=== PATIENT | female | born 1945 | race Caucasian/White ===

== ENCOUNTER 2023-10-05 21:43 | Emergency (ER) | payer OTHER, SELFPAY ==
[2023-10-05] MEDS ORDERED: KETOROLAC 30 MG/ML INJ ONE (22:15)
[2023-10-05] MEDS ORDERED: ONDANSETRON 4 MG/2 ML VIAL ONE (22:15)
[2023-10-05] MEDS ORDERED: NA CHLORIDE 0.9% 1,000 ML ONE (22:15)
[2023-10-05] MEDS ORDERED: MORPHINE 4 MG/ML SYR ONE (22:15)
[2023-10-05 22:16] LABS: Absolute Eosinophils 0.1 K/uL (0-0.5); Absolute Lymphocytes (CBC) 1.6 K/uL (0.7-4.9); Absolute Monocytes 0.5 K/uL (0.1-1.3); Absolute Neutrophil 5.8 K/uL (1.8-8.0); Basophils % 0.5 % (0-1.3); Eosinophils % 1.2 % (0-4.4); Hematocrit 35.9 % (36.0-45.0); Hemoglobin 11.9 g/dL (12.0-15.0); Lymphocytes % 20.2 % (15.3-44.8); MCH 28.8 pg (27.0-35.0); MCHC 33.3 g/dL (32.0-36.0); MCV 86.6 fL (80-100); MPV 8.8 fL (7.6-11.3); Monocytes % 5.8 % (3.3-12.3); Neutrophils % 72.3 % (41.7-73.7); Nucleated Red Blood Cells % 0.2 % (0-0); Platelets 129 thou/uL (152-406); RBC Red Blood Cell Count 4.14 M/uL (3.86-4.86); Red Cell Distribution Width 15.2 % (12.1-15.2)
[2023-10-05 22:30] LABS: Anion Gap 8.5 mEq/L (5.0-15.0); Potassium 3.5 mEq/L (3.5-5.1)
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
--- NOTE | 2023-10-06 00:17 | EDPHYS ---
Physician Documentation [facility] Name: Esme Jean Baptiste Age: 78 yrs Sex: Female : 1945 Arrival Date: 10/05/2023 Time: 21:43 Bed 20 Private MD: ED Physician Tera Rios HPI: 10/04 23:57 This 78 yrs old Female presents to ER via EMS with complaints of fall and sp4 left shoulder pain . 10/05 05:12 78-year-old female presents with acute fall at home with complaint of the left shoulder sp4 pain, left neck pain, possible head injury, left hip and thigh pain. Historical: - Allergies: 10/04 22:04 Codeine; pf1 - PMHx: 22:04 Hypertensive disorder; palpitations; Hypercholesterolemia; Diabetes mellitus; Asthma; pf1 Congestive heart failure; - PSHx: 22:04 pacemaker; gastric sleeve; bilateral knee replacement; right shoulder replacement; left pf1 shoulder; - Immunization history:: Adult Immunizations up to date, 3 doses of Moderna Last tetanus immunization: < 5 years ago Flu vaccine is up to date. - Infectious Disease History:: Denies. - Social history:: Smoking status: Patient denies any tobacco usage or history of. Patient/guardian denies using alcohol, street drugs. - Family history:: not pertinent. ROS: 10/05 05:12 Constitutional: Negative for fever, chills, and weight loss, positive for left sp4 shoulder pain, left neck pain, fall at home, left hip and thigh pain. All other systems are negative, Exam: 05:12 Constitutional: This is a well developed, well nourished patient who is awake, alert, sp4 and in no acute distress. Head/Face: Normocephalic, atraumatic. Eyes: Pupils equal round and reactive to light, extra-ocular motions intact. Lids and lashes normal. Conjunctiva and sclera are not injected. Cornea within normal limits. Periorbital areas with no swelling, redness, or edema. ENT: Nares patent. No nasal discharge, no septal abnormalities noted. Tympanic membranes are normal and external auditory canals are clear. Oropharynx with no redness, swelling, or masses, exudates, or evidence of obstruction, uvula midline. Mucous membranes moist. Neck: Trachea midline, no thyromegaly or masses palpated, and no cervical lymphadenopathy. Supple, full range of motion without nuchal rigidity, or vertebral point tenderness. Chest/axilla: Normal chest wall appearance and motion. Nontender with no deformity. No lesions are appreciated. Cardiovascular: Regular rate and rhythm with a normal S1 and S2. No gallops, murmurs, or rubs. Normal PMI, no JVD. No pulse deficits. Respiratory: Lungs have equal breath sounds bilaterally, clear to auscultation and percussion. No rales, rhonchi or wheezes noted. No increased work of breathing, no retractions or nasal flaring. Abdomen/GI: Soft, with normal bowel sounds. No distension or tympany. No guarding or rebound. No evidence of tenderness throughout. Back: No spinal tenderness. No costovertebral tenderness. Skin: Warm, dry with normal turgor. Normal color with no rashes, no lesions, and no evidence of cellulitis. MS/ Extremity: Pulses equal, no cyanosis. Neurovascular intact. Full, normal range of motion. Neuro: Awake and alert, GCS 15, oriented to person, place, time, and situation. Cranial nerves II-XII grossly intact. Motor strength 5/5 in all extremities. Sensory grossly intact. Psych: Awake, alert, with orientation to person, place and time. Behavior, mood, and affect are within normal limits Vital Signs: 10/04 21:52 BP 136 / 67; Pulse 65; Resp 16; Temp 98.1; Pulse Ox 99% on R/A; Weight 94.35 kg; Height pf1 5 ft. 0 in. ; Pain 10/10; 22:15 BP 139 / 67; Pulse 65; Resp 18 S; Pulse Ox 99% on R/A; ha1 22:45 BP 148 / 60; Pulse 61; Resp 18 S; Pulse Ox 99% on R/A; ha1 23:50 BP 145 / 62; Pulse 64; Resp 17 S; Temp 97.9(T); Pulse Ox 97% on R/A; ha1 21:52 Body Mass Index 40.62 (94.35 kg, 152.4 cm) pf1 21:52 Pain Scale: Adult pf1 Bob Coma Score: 10/05 05:12 Eye Response: spontaneous(4). Motor Response: obeys commands(6). Verbal Response: sp4 oriented(5). Total: 15. MDM: 10/04 21:59 Patient medically screened. sp4 23:57 ED course: EXAMINATION: CT HEAD CERVICAL SPINE CHESTABDOMEN PELVIS WITHOUT IV CONTRAST sp4 INDICATION: Female, 78 years old, fall, injury COMPARISON(S): None. TECHNIQUE: CT acquisition of the head without contrast. CT acquisition of the cervical spine without contrast. Coronal and sagittal reformats provided. This exam was performed according to departmental dose-optimization program which includes automated exposure control, adjustment of the mA and/or kV according to patient size, and/or use of iterative reconstruction technique. FINDINGS: SUPPORTIVE DEVICES: None. HEAD: Brain: No evidence of hemorrhage, mass effect, or cerebral edema. CSF Spaces: The ventricles and sulci are mildly enlarged consistent with mild global parenchymal volume loss. Skull: The calvarium is intact. Soft tissue: Small right supraorbital soft tissue hematoma suspected. Other: The imaged facial bones are intact. The globes and orbits are unremarkable. The visualized paranasal sinuses and mastoid cells are clear. CERVICAL SPINE: Morphology: Normal vertebral body heights. No identified fracture. Alignment: No traumatic listhesis. Craniocervical Junction: Intact. Disc Levels: Moderate multilevel degenerative changes. Other: No acute finding of the neck soft tissues or imaged lung apices. IMPRESSION: 1. No acute intracranial abnormality. 2. No acute cervical osseous abnormality. . 23:58 ED course: EXAMINATION: XR HUMERUS LEFT, XR SHOULDER 2 OR MORE VIEWS LEFT INDICATION: sp4 Female, 78 years old, left shoulder pain fall TECHNIQUE: 2 views left shoulder, 2 views left humerus COMPARISON(S): None. FINDINGS: Exam is limited by lack of orthogonal view, and poor [id number]. No evidence of acute fracture or dislocation. Surgical anchor in the humeral head. Osseous mineralization appears normal. At least mild cardiomegaly clavicular and glenohumeral osteoarthrosis. Unremarkable soft tissues. Left-sided cardiac device. IMPRESSION: No acute osseous finding of the assessed left upper extremity within the exam limitations. Consider repeat exam of the left shoulder with increased number of views if there is persistent clinical concern.. ED course: EXAMINATION: XR HUMERUS LEFT, XR SHOULDER 2 OR MORE VIEWS LEFT INDICATION: Female, 78 years old, left shoulder pain fall TECHNIQUE: 2 views left shoulder, 2 views left humerus COMPARISON(S): None. FINDINGS: Exam is limited by lack of orthogonal view, and poor [id number]. No evidence of acute fracture or dislocation. Surgical anchor in the humeral head. Osseous mineralization appears normal. At least mild cardiomegaly clavicular and glenohumeral osteoarthrosis. Unremarkable soft tissues. Left-sided cardiac device. IMPRESSION: No acute osseous finding of the assessed left upper extremity within the exam limitations. Consider repeat exam of the left shoulder with increased number of views if there is persistent clinical concern. . ED course: EXAMINATION: XR FEMUR 2 VIEWS LEFT INDICATION: Female, 78 years old, fall TECHNIQUE: 5 views COMPARISON(S): None. FINDINGS: No acute fracture. Partially assessed total knee arthroplasty without evidence of hardware complication or joint effusion. Degenerative changes of the imaged lumbosacral spine, left sacroiliac joint and hip. Unremarkable soft tissues. IMPRESSION: No acute osseous finding of the left femur. . 10/05 00:02 ED course: EXAMINATION: XR FEMUR 2 VIEWS LEFT INDICATION: Female, 78 years old, fall sp4 TECHNIQUE: 5 views COMPARISON(S): None. FINDINGS: No acute fracture. Partially assessed total knee arthroplasty without evidence of hardware complication or joint effusion. Degenerative changes of the imaged lumbosacral spine, left sacroiliac joint and hip. Unremarkable soft tissues. IMPRESSION: No acute osseous finding of the left femur. 05:14 Differential Diagnosis altered mental status, sepsis, flu. Data reviewed: vital signs, 4 nurses notes, EMS record, old medical records, lab test result(s), radiologic studies, CT scan, plain films. 10/04 21:55 Order name: Basic Metabolic Panel; Complete Time: 00:02 [facility] 10/04 21:55 Order name: CBC with Diff; Complete Time: 00:02 [facility] 10/04 21:55 Order name: Type And Screen [facility] 10/04 21:55 Order name: CT Traumagram (Head C Spine CAP wo con) [facility] 10/04 21:55 Order name: Femur Left XRAY 4 10/04 21:57 Order name: Shoulder Left (2 View) XRAY 4 10/04 21:57 Order name: Humerus Left XRAY [facility] 10/04 21:55 Order name: Labs collected and sent; Complete Time: 22:13 [facility] 10/05 00:11 Order name: Sling; Complete Time: 00:41 sp4 Administered Medications: 10/04 22:10 Drug: NS 0.9% IV 1000 ml IV at 125 ml/hr continuous Route: IV; Rate: 125 ml/hr; Site: ha right forearm; 10/05 00:20 Follow up: Response: No adverse reaction; IV Status: Completed infusion; IV Intake: ha1 300ml 10/04 22:12 Drug: Ketorolac IVP 30 mg IVP once Route: IVP; Site: right forearm; 1 22:45 Follow up: Response: No adverse reaction; Marked relief of symptoms; Pain is decreased ha1 22:15 Drug: Ondansetron IVP 4 mg IVP once; over 2 minutes Route: IVP; Site: right forearm; 1 22:45 Follow up: Response: No adverse reaction; Marked relief of symptoms 1 22:17 Drug: morphine IVP or IV 4 mg IVP once over 4 mins Route: IVP; Infused Over: 4 mins; [facility] Site: right forearm; 22:45 Follow up: Response: No adverse reaction; Marked relief of symptoms; Pain is decreased; ha1 RASS: Alert and Calm (0) 10/05 00:25 Drug: [place] PO 10 mg-325 mg 1 tabs PO once Route: PO; ha1 00:42 Follow up: Response: No adverse reaction; Marked relief of symptoms; Pain is decreased; ha1 RASS: Alert and Calm (0) 00:25 Drug: Methocarbamol PO 750 mg PO once Route: PO; ha1 00:42 Follow up: Response: No adverse reaction; Marked relief of symptoms ha1 00:25 Drug: Ondansetron PO 4 mg PO once Route: PO; ha1 00:42 Follow up: Response: No adverse reaction; Marked relief of symptoms ha1 Disposition Summary: 10/06/23 00:16 Discharge Ordered Notes: Location: Home sp4 Problem: new sp4 Symptoms: have improved sp4 Condition: Stable sp4 Diagnosis - Contusion of elbow sp4 - Fall at home, left shoulder contusion, left hip and thigh contusion, acute head sp4 injury Followup: sp4 - With: Rogelio Macias DO - When: 7 - 10 days - Reason: Recheck today's complaints Discharge Instructions: - Discharge Summary Sheet sp4 - Elbow Contusion, [id number] sp4 Forms: - Family Work Release ha1 - Patient Portal Instructions sp4 Prescriptions: - Tramadol 50 mg Oral tablet - take 1 tablet ORAL route every 8 hours as needed; 25 tablet; Refills: 0, sp4 Product Selection Permitted - methocarbamol 750 mg Oral tablet - take 2 tablets ORAL route every 8 hours for 2 days PRN muscle soreness; 60 sp4 tablet; Refills: 0, Product Selection Permitted - ondansetron 8 mg Oral Tablet,disintegrating - take 1 tablet ORAL route every 8 hours PRN nausea; 30 tablet; Refills: 0, sp4 Product Selection Permitted Signatures: Dispatcher [employer] EDMS Joi Levy, RN RN ha1 Vee Oneal RN RN pf1 Tera Rios MD MD sp4 Corrections: (The following items were deleted from the chart) 10/04 21:56 21:56 BASIC METABOLIC PANEL+C.LAB.BRZ ordered. EDMS EDMS 21:56 21:56 CBC+H.LAB.BRZ ordered. EDMS EDMS 21:56 21:56 TYPE AND SCREEN+BB.LAB.BRZ ordered. EDMS EDMS 21:56 21:56 Head C Spine Cap Wo Con+CT.RAD.BRZ ordered. EDMS EDMS 21:56 21:56 Femur Left+RAD.RAD.BRZ ordered. EDMS EDMS 22:06 22:04 PMHx: Diabetes mellitus; pf1 pf1
[2023-10-06] MEDS ORDERED: methocarbamoL 750 MG TAB ONE (00:25)
[2023-10-06] MEDS ORDERED: HYDROCODONE/APAP 10/325 TAB ONE (00:25)
[2023-10-06] MEDS ORDERED: ONDANSETRON 4 MG (ODT) TAB ONE (00:26)
[2023-10-06 01:11] VITALS: BP 148/60; TEMP 98.1; O2SAT 99
--- NOTE | 2023-10-06 13:23 | RAD REPORT ---
EXAM DESCRIPTION: RAD - Humerus Left - 10/05/2023 11:02 pm CLINICAL HISTORY: Female, 78 years old, left shoulder pain fall TECHNIQUE: 2 views left shoulder, 2 views left humerus COMPARISON: None. FINDINGS: Exam is limited by lack of orthogonal view, and poor [id number]. No evidence of acute fracture or dislocation. Surgical anchor in the humeral head. Osseous mineraliza tion appears normal. At least mild cardiomegaly clavicular and glenohumeral osteoarthrosis. Unremarka ble soft tissues. Left-sided cardiac device. IMPRESSION: No acute osseous finding of the assessed left upper extremity within the exam limitation s. Consider repeat exam of the left shoulder with increased number of views if there is persistent cl inical concern. Electronically signed by: David Hand MD 10/05/2023 11:39 PM CDT Due to temporary technical issues with the PACS/Fluency reporting system, reports are being signed by the in house radiologist without review as a courtesy to ensure prompt reporting. The interpreting r adiologist is fully responsible for the content of the report.
--- NOTE | 2023-10-06 13:24 | RAD REPORT ---
EXAM DESCRIPTION: RAD - Shoulder Left 2 View - 10/05/2023 11:02 pm CLINICAL HISTORY: Female, 78 years old, left shoulder pain fall TECHNIQUE: 2 views left shoulder, 2 views left humerus COMPARISON: None. FINDINGS: Exam is limited by lack of orthogonal view, and poor [id number]. No evidence of acute fracture or dislocation. Surgical anchor in the humeral head. Osseous mineraliza tion appears normal. At least mild cardiomegaly clavicular and glenohumeral osteoarthrosis. Unremarka ble soft tissues. Left-sided cardiac device. IMPRESSION: No acute osseous finding of the assessed left upper extremity within the exam limitation s. Consider repeat exam of the left shoulder with increased number of views if there is persistent cl inical concern. Electronically signed by: David Hand MD 10/05/2023 11:39 PM CDT Due to temporary technical issues with the PACS/Fluency reporting system, reports are being signed by the in house radiologist without review as a courtesy to ensure prompt reporting. The interpreting r adiologist is fully responsible for the content of the report.
--- NOTE | 2023-10-06 13:25 | RAD REPORT ---
EXAM DESCRIPTION: RAD - Femur Left - 10/05/2023 11:02 pm CLINICAL HISTORY: Female, 78 years old, fall TECHNIQUE: 5 views COMPARISON: None. FINDINGS: No acute fracture. Partially assessed total knee arthroplasty without evidence of hardware complication or joint effusion. Degenerative changes of the imaged lumbosacral spine, left sacroilia c joint and hip. Unremarkable soft tissues. IMPRESSION: No acute osseous finding of the left femur. Electronically signed by: David Hand MD 10/05/2023 11:36 PM CDT Due to temporary technical issues with the PACS/Fluency reporting system, reports are being signed by the in house radiologist without review as a courtesy to ensure prompt reporting. The interpreting r adiologist is fully responsible for the content of the report.
--- NOTE | 2023-10-06 13:26 | RAD REPORT ---
EXAM DESCRIPTION: CT - Head C Spine Cap Wo Con - 10/06/2023 6:30 am ADDENDUM #1 Imaging of the chest, abdomen, and pelvis within this single accession was not recognized at the time of initial interpretation. Report of findings as follows below: EXAMINATION: CT HEAD CERVICAL SPINE CHEST ABDOMEN PELVIS WITHOUT IV CONTRAST CLINICAL HISTORY: Female, 78 years old, fall, injury COMPARISON: Previously reported CT cervical spine TECHNIQUE: CT acquisition of the chest, abdomen, and pelvis without contrast. Coronal and sagittal r eformatted images provided. This exam was performed according to departmental dose-optimization progr am which includes automated exposure control, adjustment of the mA and/or kV according to patient siz e, and/or use of iterative reconstruction technique. FINDINGS: SUPPORTIVE DEVICES: Left-sided cardiac pacer with lead tips in the right atrial appendage and right ventricle. Beam hardening from arms down positioning results in decreased [id number] and limits interpretat ion. CHEST: Vasculature: No noncontrast evidence of thoracic vascular injury. Heart and Pericardium: Normal heart size. No pericardial effusion. Mediastinum: No mediastinal hematoma. Unremarkable esophagus. Lungs and Airways: No pulmonary contusion or laceration. Pleural Space: No pneumothorax or hemothorax. ABDOMEN/PELVIS: Liver: No evidence of liver injury. Diffusely nodular contour. Gallbladder/Biliary System: Tiny layering calcified stone within the gallbladder lumen without eviden ce of wall thickening or obstruction. Pancreas: No evidence of pancreatic injury. Diffuse fatty infiltration. Spleen: No evidence of splenic injury. Numerous scattered calcifications. Adrenals: Unremarkable. Kidneys and Ureters: No evidence of injury. Bladder: No gross bladder contusion or obvious rupture. Calcified densities project appear along the proximal ureter, possibly within periurethral diverticula. Reproductive Organs: Absent uterus. No identified pelvic mass. Vasculature: No noncontrast evidence of injury. Mesentery and Peritoneum: No hemoperitoneum or pneumoperitoneum. No mesenteric hematoma or evidence o f active hemorrhage. Bowel: Atraumatic appearance. THORACIC AND LUMBAR SPINE: Morphology: No fracture. Vertebral body heights are normal. Alignment: No traumatic listhesis. Degenerative grade 1 anterolisthesis of L4-L5. Disc Levels: Moderate to severe multilevel spondylosis. At least moderate canal and foraminal stenosi s within the lower lumbar spine. MUSCULOSKELETAL: Chest Wall: No acute rib or sternal fracture. Subtle chronic appearing left lateral inferior rib defo rmities. Pelvis: No fracture. Proximal Appendicular Bones and Joints: No acute fracture or joint malalignment. Right shoulder arthr oplasty without evidence of hardware complication. Surgical anchor in the left humeral head. 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 Muscles and Subcutaneous Tissues: No soft tissue injury. Prior umbilical hernia repair. IMPRESSION: 1. No acute traumatic injury of the chest, abdomen, or pelvis within the limitations of a noncontra st exam. 2. No acute thoracic or lumbar osseous abnormality. 3. Attention to nonemergent incidental findings: Cirrhotic hepatic morphology. Cholelithiasis. Shabbir tional chronic and incidental findings above. Electronically signed by: David Hand MD 10/06/2023 07:39 AM CDT End of Addendum EXAM DESCRIPTION: CT HEAD CERVICAL SPINE CHEST ABDOMEN PELVIS WITHOUT IV CONTRAST CLINICAL HISTORY: Female, 78 years old, fall, injury COMPARISON: None. TECHNIQUE: CT acquisition of the head without contrast. CT acquisition of the cervical spine without contrast. Coronal and sagittal reformats provided. This exam was performed according to departmental dose-optimization program which includes automated exposure control, adjustment of the mA and/or kV according to patient size, and/or use of iterative reconstruction technique. FINDINGS: SUPPORTIVE DEVICES: None. HEAD: Brain: No evidence of hemorrhage, mass effect, or cerebral edema. CSF Spaces: The ventricles and sulci are mildly enlarged consistent with mild global parenchymal volu me loss. Skull: The calvarium is intact. Soft tissue: Small right supraorbital soft tissue hematoma suspected. Other: The imaged facial bones are intact. The globes and orbits are unremarkable. The visualized par anasal sinuses and mastoid cells are clear. CERVICAL SPINE: Morphology: Normal vertebral body heights. No identified fracture. Alignment: No traumatic listhesis. Craniocervical Junction: Intact. Disc Levels: Moderate multilevel degenerative changes. Other: No acute finding of the neck soft tissues or imaged lung apices. IMPRESSION: 1. No acute intracranial abnormality. 2. No acute cervical osseous abnormality. Electronically signed by: David Hand MD 10/05/2023 11:35 PM CDT Due to temporary technical issues with the PACS/Fluency reporting system, reports are being signed by the in house radiologist without review as a courtesy to ensure prompt reporting. The interpreting r adiologist is fully responsible for the content of the report.
== END 2023-10-06 00:43 | disposition home or self-care (01) ==
LOC: ER 21:43
DX: S40.012A Contusion of left shoulder, initial encounter (principal); S50.02XA Contusion of left elbow, initial encounter; S70.02XA Contusion of left hip, initial encounter; S70.12XA Contusion of left thigh, initial encounter; S09.90XA Unspecified injury of head, initial encounter; W18.30XA Fall on same level, unspecified, initial encounter; Y92.009 Unspecified place in unspecified non-institutional (private) residence as the place of occurrence of the external cause; I10 Essential (primary) hypertension; Z95.0 Presence of cardiac pacemaker; Z96.653 Presence of artificial knee joint, bilateral; Z96.612 Presence of left artificial shoulder joint; Z96.611 Presence of right artificial shoulder joint; Z88.5 Allergy status to narcotic agent
CPT/HCPCS: 96361; 85025; 80048; 36415; 86900; 86850; 86901; 70450; 71250; 72125; 73060; 73030; 73552; 96375; 96374; 99284; Q0162; J2405; J7030

== ENCOUNTER 2024-06-11 09:49 | Emergency (ER) | payer OTHER ==
--- NOTE | 2024-06-11 10:40 | RAD REPORT ---
EXAMINATION: ONE VIEW CHEST XR CLINICAL INDICATION: fatigue TECHNIQUE: Frontal chest projection is submitted. Examination is limited by patient positioning and t echnique. COMPARISON: 11/05/2016 FINDINGS: The lungs are well inflated and clear. The heart is upper limit of normal in size. No displaced fract ures identified. Dual lead pacer device is present. Proximal right humeral hardware. IMPRESSION: No acute intrathoracic abnormalities.
--- NOTE | 2024-06-11 11:12 | RAD REPORT ---
EXAM: CT brain without contrast HISTORY: HEADACHE COMPARISON: 11/04/2016 TECHNIQUE: Multiple contiguous axial images were obtained and a CT of the brain without contrast. Sag ittal and coronal reformats were performed. One or more of the following dose reduction techniques were used: Automated exposure control, adjust ment of the mA and/or kV according to patient size, and/or iterative reconstruction. FINDINGS: No evidence of hydrocephalus, intracranial hemorrhage, or extra-axial fluid collection. The brain is normal in morphology. No evidence of midline shift or areas of brain edema. The calvarium is intact. The visualized paranasal sinuses and mastoid air cells are essentially clear . IMPRESSION: No evidence of acute intracranial abnormality.
[2024-06-11 11:29] LABS: Albumin 2.8 g/dL (3.4-5.0); Anion Gap 12.4 mEq/L (5.0-15.0); Bilirubin Direct 0.4 mg/dL (0-0.2); Bilirubin Indirect, Calculated 0.7 mg/dL (0.2-0.8); Bilirubin Total 1.1 mg/dL (0.2-1.0); Globulin 2.9 g/dL (2.3-3.5); Magnesium 2.1 mg/dL (1.6-2.4); Potassium 3.4 mEq/L (3.5-5.1); Protein, Total 5.7 g/dL (6.4-8.2); Troponin High Sensitivity 17.5 pg/mL (<58.9)
[2024-06-11 12:20] LABS: Absolute Lymphocytes (CBC) 0.8 K/uL (0.7-4.9); Absolute Monocytes 0.2 K/uL (0.1-1.3); Absolute Neutrophil 5.3 K/uL (1.8-8.0); Basophils % 0.4 % (0-1.3); Eosinophils % 0.5 % (0-4.4); Hematocrit 35.4 % (36.0-45.0); Hemoglobin 11.6 g/dL (12.0-15.0); Lymphocytes % 13.2 % (15.3-44.8); MCH 26.2 pg (27.0-35.0); MCHC 32.9 g/dL (32.0-36.0); MCV 79.8 fL (80-100); MPV 10.2 fL (7.6-11.3); Monocytes % 3.2 % (3.3-12.3); Neutrophils % 82.7 % (41.7-73.7); Platelets 81 thou/uL (152-406); RBC Red Blood Cell Count 4.44 M/uL (3.86-4.86); Red Cell Distribution Width 17.3 % (12.1-15.2)
--- NOTE | 2024-06-11 13:12 | EDPHYS ---
Physician Documentation [facility] Name: Esme Jean Baptiste Age: 78 yrs Sex: Female : 1945 Arrival Date: 06/11/2024 Time: 09:49 Bed 20 Private MD: ED Physician Noé Westbrook HPI: 06/11 11:05 This 78 yrs old Unknown Female presents to ER via EMS with complaints of ms3 Nausea/Vomiting. 11:05 Esme Jean Baptiste is a 79-year-old female presents to the Emergency Department following a ms3 recent discharge from [facility], where she was admitted for hypotension. She reports feeling weak, dizzy, and nauseous since her discharge the day before yesterday. She has a history of transient ischemic attacks (TIAs) and atrial fibrillation (AFib). Upon arrival at the ED, she felt nauseous.. She also reports experiencing pain in her heart and right leg, which has been ongoing for about five weeks. 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 She has been on multiple blood pressure medications and morphine at the hospital.. Historical: - Allergies: 10:02 Codeine; ss - PMHx: 10:02 Asthma; Hypercholesterolemia; Hypertensive disorder; diabetes mellitus; Congestive ss heart failure; palpitations; - PSHx: 10:02 bilateral knee replacement; gastric sleeve; left shoulder; pacemaker; Right shoulder ss replacement; - Immunization history:: Adult Immunizations up to date. - Infectious Disease History:: Denies. - Social history:: Smoking status: Patient denies any tobacco usage or history of. ROS: 11:05 Constitutional: Negative for fever, and chills. Cardiovascular: Negative for chest ms3 pain, and palpitations. Respiratory: Negative for shortness of breath, cough, wheezing, and pleuritic chest pain, MS/Extremity: Negative for injury and deformity, Skin: Negative for injury, rash, and discoloration, 11:05 Abdomen/GI: Positive for nausea, Negative for vomiting, Exam: 11:05 Constitutional: This is a well developed, well nourished patient who is awake, alert, ms3 and in no acute distress. Head/Face: Normocephalic, atraumatic. Cardiovascular: Regular rate and rhythm with a normal S1 and S2. No gallops, murmurs, or rubs. Normal PMI, no JVD. No pulse deficits. Respiratory: Lungs have equal breath sounds bilaterally, clear to auscultation and percussion. No rales, rhonchi or wheezes noted. No increased work of breathing, no retractions or nasal flaring. Abdomen/GI: Soft, non-tender, with normal bowel sounds. No distension or tympany. No guarding or rebound. No evidence of tenderness throughout. Skin: Warm, dry with normal turgor. Normal color with no rashes, no lesions, and no evidence of cellulitis. MS/ Extremity: Pulses equal, no cyanosis. Neurovascular intact. Full, normal range of motion. 11:14 ECG was reviewed by the Attending Physician. ms3 Vital Signs: 09:58 BP 132 / 65; Pulse 62; Resp 18; Temp 97.5(O); Pulse Ox 98% on R/A; Weight 86.64 kg; ss Height 5 ft. 6 in. ; Pain 0/10; 11:28 BP 124 / 56; Pulse 61; Resp 15; Temp 98; Pulse Ox 94% on R/A; os 09:58 Body Mass Index 30.83 (86.64 kg, 167.64 cm) ss 09:58 Pain Scale: Adult ss MDM: 09:59 Medical Screening Exam initiated ms3 11:05 Differential diagnosis: Nonspecific abd pain, NH vs electrolyte abnormality. ms3 13:12 Data reviewed: vital signs, nurses notes, lab test result(s), EKG, radiologic studies, ms3 and as a result, I will discharge patient. 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 Can start 200 mg Tegretol at bedtime. Discussed case with Dr Martinez and patient to stop Losartan until she follows up with him.. Independent interpretation of the following test(s) in the Emergency Department EKG: See my EKG interpretation above. Historians other than the Patient: [facility]. Counseling: I had a detailed discussion with the patient and/or guardian regarding the historical points, exam findings, and any diagnostic results supporting the discharge/admit diagnosis, lab results, radiology results, the need for outpatient follow up, to return to the emergency department if symptoms worsen or persist or if there are any questions or concerns that arise at home. Special discussion: I discussed with the patient/guardian in detail that at this point there is no indication for admission to the hospital. It is understood, however, that if the symptoms persist or worsen the patient needs to return immediately for re-evaluation. ED course: Discussed conversation with Dr. Patterson and Dr. Martinez with patient and her family. Patient to follow-up with Dr. Patterson and Dr. Martinez in 2 to 3 days. Patient understands and agrees with plan. Patient instructed to stop her losartan per conversation with Dr. Martinez. Discussed Tegretol 200 mg at night per Dr. Patterson's Recs. All questions were answered. On reevaluation patient is alert and oriented x 4, no apparent distress, nontoxic-appearing, speaking full sentences.. 06/11 10:01 Order name: Basic Metabolic Panel; Complete Time: 12:26 06/11 10:01 Order name: CBC with Diff 3 06/11 10:01 Order name: LFT's; Complete Time: 12:26 06/11 10:01 Order name: Magnesium; Complete Time: 12:06/11 10:01 Order name: NT PRO-BNP; Complete Time: 12:26 06/11 10:01 Order name: Troponin HS; Complete Time: 12:06/11 13:27 Order name: CBC Smear Scan EDMS 06/11 10:01 Order name: XRAY Chest (1 view); Complete Time: 11:13 06/11 10:44 Order name: CT Head Brain wo Cont; Complete Time: 11:13 06/11 10:01 Order name: Cardiac monitoring; Complete Time: 11:10 06/11 10:01 Order name: EKG - Nurse/Tech; Complete Time: 11:10 06/11 10:01 Order name: IV Saline Lock; Complete Time: 10:03 06/11 10:01 Order name: Labs collected and sent; Complete Time: 10:06/11 10:01 Order name: O2 Per Protocol; Complete Time: 10:06/11 10:01 Order name: O2 Sat Monitoring; Complete Time: 10:06/11 11:48 Order name: Labs - recollect needed: lavender only; Complete Time: 12:12 ss EC:14 Rate is 60 beats/min. Rhythm is regular. QRS interval is prolonged. Clinical ms3 impression: Paced. Interpreted by me. Reviewed by me. Administered Medications: No medications were administered Disposition Summary: 06/11/24 13:11 Discharge Ordered Notes: Location: Home ms3 Condition: Stable ms3 Diagnosis - Hemifacial spasm ms3 - Anemia, unspecified ms3 Followup: ms3 - With: David Patterson MD - When: 2 - 3 days - Reason: Recheck today's complaints Followup: ms3 - With: Private Physician - When: 2 - 3 days - Reason: Recheck today's complaints Discharge Instructions: - Discharge Summary Sheet ms3 - Anemia ms3 Forms: - Medication Reconciliation Form ms3 - Antibiotic Education ms3 - Prescription Opioid Use ms3 - Patient Portal Instructions ms3 - Leadership Thank You Letter ms3 Prescriptions: - Tegretol 200 mg Oral tablet - take 1 tablet ORAL route At bedtime; 20 tablet; Refills: 0, Product Selection ms3 Permitted Signatures: Dispatcher [employer] EDMS Yulissa Ca, RN RN ss Noé Westbrook, DO DO ms3 Debbie Mcneill, RN RN os Corrections: (The following items were deleted from the chart) 10:02 10:02 Chest Single View+[email or web address].BRZ ordered. EDFL EDMS 11:16 11:14 Rate is 60 beats/min. Rhythm is regular. QRS interval is prolonged. Clinical ms3 impression: NSR w/ Non-specific ST/T Changes. Interpreted by me. Reviewed by me. ms3
--- NOTE | 2024-06-11 13:12 | ER ---
Nurse's Notes [facility] Name: Esme Jean Baptiste Age: 78 yrs Sex: Female : 1945 Arrival Date: 06/11/2024 Time: 09:49 Bed 20 Private MD: Diagnosis: Hemifacial spasm;Anemia, unspecified Presentation: 06/11 09:58 Chief complaint: EMS states: Sent by PCP for evaluation of low blood pressure, N/V. Pt ss reports she was recently discharged from [facility] for low blood pressure and has not felt very well since then. Pt c/o fatigue, N/V. Coronavirus screen: Client denies travel out of the [place] in the last 14 days. Ebola Screen: Patient denies exposure to infectious person. Patient denies travel to an Ebola-affected area in the 21 days before illness onset. Initial Sepsis Screen: Does the patient meet any 2 criteria? No. Patient's initial sepsis screen is negative. Does the patient have a suspected source of infection? No. Patient's initial sepsis screen is negative. Risk Assessment: Do you want to hurt yourself or someone else? Patient reports no desire to harm self or others. Onset of symptoms was June 01, 2024. 09:58 Method Of Arrival: EMS: [facility] 09:58 Acuity: LELE 3 ss Triage Assessment: 11:27 General: Appears uncomfortable, Behavior is cooperative, anxious. Pain: Complains of os pain in face Pain currently is 7 out of 10 on a pain scale. Neuro: No deficits noted. Level of Consciousness is awake, alert, obeys commands, Oriented to person, place, time, situation, Appropriate for age. Respiratory: No deficits noted. GI: Reports nausea. Historical: - Allergies: 10:02 Codeine; ss - PMHx: 10:02 Asthma; Hypercholesterolemia; Hypertensive disorder; diabetes mellitus; Congestive ss heart failure; palpitations; - PSHx: 10:02 bilateral knee replacement; gastric sleeve; left shoulder; pacemaker; Right shoulder ss replacement; - Immunization history:: Adult Immunizations up to date. - Infectious Disease History:: Denies. - Social history:: Smoking status: Patient denies any tobacco usage or history of. Screenin:34 [facility] ED Fall Risk Assessment (Adult) History of falling in the last 3 months, os including since admission No falls in past 3 months (0 pts) Confusion or Disorientation No (0 pts) Intoxicated or Sedated No (0 pts) Impaired Gait Yes (1 pt) Mobility Assist Device Used Altered Elimination No (0 pt) Score/Fall Risk Level 0 - 2 = Low Risk Oriented to surroundings, Maintained a safe environment, Educated pt \T\ family on fall prevention, incl call for assistance when getting out of bed. Abuse screen: Denies threats or abuse. Nutritional screening: No deficits noted. Tuberculosis screening: No symptoms or risk factors identified. Vital Signs: 09:58 BP 132 / 65; Pulse 62; Resp 18; Temp 97.5(O); Pulse Ox 98% on R/A; Weight 86.64 kg; ss Height 5 ft. 6 in. ; Pain 0/10; 11:28 BP 124 / 56; Pulse 61; Resp 15; Temp 98; Pulse Ox 94% on R/A; os 09:58 Body Mass Index 30.83 (86.64 kg, 167.64 cm) ss 09:58 Pain Scale: Adult ss ED Course: 09:57 Patient arrived in ED. ss 09:59 Noé Westbrook DO is Attending Physician. ms3 10:02 Triage completed. ss 10:02 Arm band placed on left wrist. ss 10:03 Debbie Mcneill, RN is Primary Nurse. os 10:37 XRAY Chest (1 view) In Process Unspecified. EDMS 11:08 CT Head Brain wo Cont In Process Unspecified. EDMS 11:10 Troponin HS Sent. os 11:10 NT PRO-BNP Sent. os 11:10 Magnesium Sent. os 11:10 LFT's Sent. os 11:10 CBC with Diff Sent. os 11:10 Basic Metabolic Panel Sent. os 13:10 David Patterson MD is Referral Physician. ms3 13:34 Patient has correct armband on for positive identification. Allergy band placed. Fall os risk band placed. Placed in gown. Bed in low position. Call light in reach. Side rails up X2. Adult w/ patient. Provided Education on:. 13:34 No provider procedures requiring assistance completed. intact, bleeding controlled, No os redness/swelling at site. Administered Medications: No medications were administered Medication: 13:36 VIS not applicable for this client. os Outcome: 13:11 Discharge ordered by . ms3 13:34 Discharged to home via wheelchair, os 13:34 Condition: improved 13:34 Discharge instructions given to Instructed on discharge instructions, follow up and referral plans. medication usage, Demonstrated understanding of instructions, follow-up care, medications, 13:37 Patient left the ED. os Signatures: Dispatcher GregorioYulissa Arboleda RN RN ss Noé Westbrook DO DO ms3 Debbie Mcneill RN RN os
[2024-06-11 13:27] LABS: Blood Morphology Comment NOT SEEN (NOT SEEN); Platelet Estimate DECR; White Blood Cell Scan OK (OK)
[2024-06-11 14:19] VITALS: BP 124/56; TEMP 98; O2SAT 94
--- NOTE | 2024-06-17 13:15 | EKG ---
Test Date: 2024-06-11 Test Time: 10:54:07 Credit Product Analyst: OS MEASUREMENT RESULTS: Intervals: Rate: 60 NV: 112 QRSD: 120 QT: 488 QTc: 488 [place]ham: P: 16 NV: 112 QRS: -43 T: -31 INTERPRETIVE STATEMENTS: Normal sinus rhythm Left axis deviation Left ventricular hypertrophy with QRS widening ST & T wave abnormality, consider anterior ischemia Abnormal ECG Compared to ECG 11/05/2016 06:52:32 Left ventricular hypertrophy now present ST (T wave) deviation now present Possible ischemia now present Sinus bradycardia no longer present Electronically Signed On 06-17-24 13:04:21 GRANTS MANAGER by Kash Vick
== END 2024-06-11 13:37 | disposition home or self-care (01) ==
LOC: ER 09:49
DX: G51.39 Clonic hemifacial spasm, unspecified (principal); D64.9 Anemia, unspecified; I10 Essential (primary) hypertension; E11.9 Type 2 diabetes mellitus without complications; I50.9 Heart failure, unspecified; I48.91 Unspecified atrial fibrillation; Z95.0 Presence of cardiac pacemaker
CPT/HCPCS: 36415; 70450; 71045; 80048; 80076; 83735; 83880; 84484; 85025; 93005; 99283

== ENCOUNTER 2024-10-13 12:22 | Emergency (ER) | payer OTHER ==
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
[2024-10-13] MEDS ORDERED: IBUPROFEN 200 MG TAB PO ONE (13:35)
[2024-10-13] MEDS ORDERED: HYDROMORPHONE HCL 1 MG/ML INJ ONE (13:41)
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
[2024-10-13 15:37] VITALS: TEMP 98
[2024-10-13 15:38] VITALS: BP 122/59; O2SAT 100
== END 2024-10-13 15:02 | disposition home or self-care (01) ==
LOC: ER 12:22
DX: S40.012A Contusion of left shoulder, initial encounter (principal); S40.011A Contusion of right shoulder, initial encounter; S20.219A Contusion of unspecified front wall of thorax, initial encounter; V49.40XA Driver injured in collision with unspecified motor vehicles in traffic accident, initial encounter; Z96.612 Presence of left artificial shoulder joint; Z96.611 Presence of right artificial shoulder joint; Z96.653 Presence of artificial knee joint, bilateral
CPT/HCPCS: 70450; 71250; 72125; 74176; J1171